=== PATIENT | female | born 1945 | race Caucasian/White ===

== ENCOUNTER → 2016-12-19 | Outpatient (CLI) | payer OTHER | LOC: BMCIMAGING 14:28 | DX: Z12.31 Encounter for screening mammogram for malignant neoplasm of breast (principal); M81.0 Age-related osteoporosis without current pathological fracture | CPT/HCPCS: G0202 ==

== ENCOUNTER → 2018-10-17 | Outpatient (CLI) | payer OTHER | LOC: BMCIMAGING 10:37 | PROVIDERS: ATTEND Physician Assistant | DX: M25.562 Pain in left knee (principal); M76.52 Patellar tendinitis, left knee ==